=== PATIENT | male | born 1945 | race African-American/Black ===

== ENCOUNTER 2022-12-13 19:32 | Emergency (ER) | payer MEDICARE, OTHER ==
[~2022-12-13] VITALS: Ht 182.9 cm; Wt 100.0 kg
[2022-12-13 19:50] VITALS: BP 140/93; PULSE 64; RESP 17; O2SAT 95
== END 2022-12-13 20:32 | disposition left against medical advice (07) ==
LOC: ER 19:32
DX: Z53.21 Procedure and treatment not carried out due to patient leaving prior to being seen by health care provider (principal); I49.9 Cardiac arrhythmia, unspecified
CPT/HCPCS: 93005; 99281